=== PATIENT | female | born 1965 | race Caucasian/White ===

== ENCOUNTER 2019-02-01 13:37 | Day surgery (SDC) | payer OTHER ==
[2019-02-01] MEDS ORDERED: DIPRIVAN 200 MG/20 ML IV ONE (13:38)
[2019-02-01] MEDS ORDERED: Marcaine 0.5% SDV 10 ML IJ ONE (13:38)
[2019-02-01] MEDS ORDERED: Depo-Medrol 40 MG/ML IM ONE (13:38)
[2019-02-01] MEDS ORDERED: Lactated Ringers 1,000 ML IV ONE (15:42)
--- NOTE | 2019-02-01 16:48 | XRAY ---
Indication: Right SI joint injection. Intraoperative fluoroscopy was provided for 6 seconds. 2 digital spot images submitted for interpretation demonstrates posterior needle tip projecting over the inferior right SI joint. Correlate with intraoperative findings/report.
--- NOTE | 2019-02-01 16:50 | XRAY ---
6 seconds fluoroscopy time in surgery for right SI joint injection.
--- NOTE | 2019-02-01 16:50 | XRAY ---
5 seconds fluoroscopy time in surgery for left SI joint injection.
--- NOTE | 2019-02-02 09:47 | XRAY ---
Indication: Left SI joint injection. Intraoperative fluoroscopy was provided for 5 seconds. 2 digital spot images submitted for interpretation demonstrates posterior needle tip projecting over the inferior left SI joint. Correlate with intraoperative findings/report.
== END 2019-02-01 15:32 | disposition home or self-care (01) ==
LOC: MERGE 13:37 → SDC-PAIN 13:37
PROVIDERS: ATTEND Psychiatry & Neurology Pain Medicine
DX: M46.1 Sacroiliitis, not elsewhere classified (principal); Z79.899 Other long term (current) drug therapy; J44.9 Chronic obstructive pulmonary disease, unspecified; K21.9 Gastro-esophageal reflux disease without esophagitis; G47.30 Sleep apnea, unspecified; F32.9 Major depressive disorder, single episode, unspecified
CPT/HCPCS: 72020; 77002; 84703; G0260; 27096; J1030; J2704